=== PATIENT | female | born 1975 | race Caucasian/White ===

== ENCOUNTER 2017-01-18 15:07 | Inpatient (IN) | payer MEDICAID ==
[~2017-01-18] VITALS: Ht 165.1 cm; Wt 72.6 kg
[~2017-01-18 15:07] MED LIST: ASPI-518; ASPI-864 PO; FERR325T23 PO; GLYB5TAB7 PO; LEVO1TAB43; LISI-186 PO; LISI10TA5 PO; METF-517 PO; METF500T4 PO
[2017-01-18 16:13] LABS: INR 0.9; PARTIAL THROMBOPLASTIN TIME 21.2 sec (23.4-31.0); PROTHROMBIN TIME 9.9 sec (9.4-11.6)
[2017-01-18 16:15] LABS: CARBON DIOXIDE 23 mEq/L (21-32); CHLORIDE 104 mEq/L (98-107)
[2017-01-18 16:18] LABS: TROPONIN I < 0.02 ng/mL (0.00-0.04)
[2017-01-18 16:21] LABS: CREATINE KINASE 28 IU/L (26-192); CREATINE KINASE MB FRACTION < 0.5 ng/mL (0.5-3.6)
[2017-01-18 16:24] LABS: BASOPHILS % 0.8 % (0.0-2.0); EOSINOPHILS % 0.7 % (0.0-5.0); HEMOGLOBIN. 7.1 g/dL (12.0-16.0); MEAN CORPUSCULAR HEMOGLOBIN 17.2 pg (28.0-32.0); MEAN CORPUSCULAR VOLUME 58.4 fL (81.0-99.0); MEAN PLATELET VOLUME 10.5 fl (7.4-10.4); MONOCYTES % 5.3 % (2.0-8.0); NEUTROPHILS % 69.2 % (40.0-76.0); PLATELET 179 x1000/uL (130-400); RED CELL DISTRIBUTION WIDTH 20.8 % (11.6-14.6)
[2017-01-18 16:25] LABS: HCG SCREEN NEGATIVE; TOTAL IRON BINDING CAPACITY 512 ug/dL (250-450)
[2017-01-18 16:48] LABS: PLATELET ESTIMATE NORMAL
[2017-01-18 19:19] VITALS: BP 116/64
[2017-01-18 20:03] VITALS: BP 116/64
[2017-01-18 20:22] VITALS: BP 110/69
[2017-01-18] MEDS: BLOOD SUGAR DIAGNOSTIC STRIP TEST SCH (20:29)
[2017-01-18] MEDS ORDERED: DEXTROSE 50% WATER 50ML SYRINGE IV PRN (20:30)
[2017-01-18] MEDS: INSULIN LISPRO 100 UNITS/ML SUBCUT SCH (21:33)
[2017-01-18 21:36] VITALS: BP 110/77
[2017-01-19] VITALS: BP 107/71
[2017-01-19 04:00] VITALS: BP 111/66
[2017-01-19 06:35] LABS: BASOPHILS % 0.8 % (0.0-2.0); EOSINOPHILS % 1.5 % (0.0-5.0); HEMATOCRIT. 26.1 % (36.0-48.0); HEMOGLOBIN. 7.9 g/dL (12.0-16.0); LYMPHOCYTES % 24.7 % (20.0-50.0); MEAN CORPUSCULAR HEMOGLOBIN 18.9 pg (28.0-32.0); MEAN CORPUSCULAR VOLUME 62.5 fL (81.0-99.0); MONOCYTES % 7.6 % (2.0-8.0); NEUTROPHILS % 65.4 % (40.0-76.0); RED BLOOD CELL COUNT 4.17 mill/uL (4.2-5.4); RED CELL DISTRIBUTION WIDTH 26.2 % (11.6-14.6)
[2017-01-19] MEDS: BLOOD SUGAR DIAGNOSTIC STRIP TEST SCH (06:36)
[2017-01-19] MEDS: INSULIN LISPRO 100 UNITS/ML SUBCUT SCH (06:36)
[2017-01-19 07:00] LABS: CHLORIDE 105 mEq/L (98-107)
[2017-01-19 07:02] LABS: CARBON DIOXIDE 22 mEq/L (21-32); TOTAL IRON BINDING CAPACITY 496 ug/dL (250-450)
[2017-01-19] MEDS ORDERED: METFORMIN HCL 500MG TABLET PO SCH (07:40)
[2017-01-19 08:00] VITALS: BP 114/70
[2017-01-19] MEDS ORDERED: ASPIRIN 81MG EC TABLET PO SCH (09:00)
[2017-01-19] MEDS ORDERED: FERR325T23 PO (10:54)
[2017-01-19 11:40] VITALS: BP 124/76
[2017-01-20 12:41] LABS: MEAN PLATELET VOLUME 9.7 fl (7.4-10.4); PLATELET 123 x1000/uL (130-400)
== END 2017-01-19 12:48 | disposition home or self-care (01) | DRG 532 ==
LOC: ER 16:15 → EDBEDREQ 16:42 → ENRESERV 16:59 → 8WST 18:54
PROVIDERS: ADMIT Internal Medicine; ATTEND Internal Medicine
PROC: 30233N1 Transfusion of Nonautologous Red Blood Cells into Peripheral Vein, Percutaneous Approach (ICD-10-PCS; principal; 2017-01-18)
DX: D25.9 Leiomyoma of uterus, unspecified (principal); D62 Acute posthemorrhagic anemia; I10 Essential (primary) hypertension; E11.9 Type 2 diabetes mellitus without complications; N92.0 Excessive and frequent menstruation with regular cycle; Z88.0 Allergy status to penicillin; Z79.82 Long term (current) use of aspirin; Z79.818 Long term (current) use of other agents affecting estrogen receptors and estrogen levels; Z79.84 Long term (current) use of oral hypoglycemic drugs; Z79.899 Other long term (current) drug therapy
CPT/HCPCS: 36415; 36430; 71010; 76830; 76856; 80048; 80053; 81025; 82550; 82553; 82728; 82962; 83540; 83550; 83690; 83880; 84443; 84484; 84703; 85025; 85044; 85610; 85730; 86850; 86900; 86920; 93005; 99291; J1815; J7030; P9016

== ENCOUNTER 2019-09-09 09:35 | Inpatient (IN) | payer MEDICAID, OTHER ==
[~2019-09-09] VITALS: Ht 165.1 cm; Wt 73.1 kg
[~2019-09-09 09:35] MED LIST changes: -ASPI-518; -LISI-186 PO; -METF500T4 PO
[2019-09-09] MEDS: INSULIN LISPRO 100 UNITS/ML SUBCUT SCH ×2 (09:45→20:36)
[2019-09-09] MEDS ORDERED: LIDOCAINE HCL/PF 1% 2ML VIAL ONE (09:47)
[2019-09-09 10:58] LABS: BASOPHILS % 0.2 % (0.0-2.0); EOSINOPHILS % 0.1 % (0.0-5.0); HEMATOCRIT. 43.6 % (36.0-48.0); MEAN CORPUSCULAR HEMOGLOBIN 29.8 pg (28.0-32.0); MEAN CORPUSCULAR VOLUME 86.5 fL (81.0-99.0); MEAN PLATELET VOLUME 10.2 fl (7.4-10.4); MONOCYTES % 6.1 % (2.0-8.0); NEUTROPHILS % 83.6 % (40.0-76.0); PLATELET 166 x1000/uL (130-400); RED BLOOD CELL COUNT 5.04 mill/uL (4.2-5.4); RED CELL DISTRIBUTION WIDTH 12.9 % (11.6-14.6)
[2019-09-09 11:01] LABS: CLARITY URINE CLEAR (CLEAR); COLOR URINE YELLOW (YELLOW); KETONES URINE 4+ (NEGATIVE); LEUKOCYTE ESTERASE URINE 1+ (NEGATIVE); NITRITE URINE NEGATIVE (NEGATIVE); OCCULT BLOOD URINE NEGATIVE (NEGATIVE); PH URINE 5.5 (4.5-8.0); PROTEIN URINE 2+ (NEGATIVE); SPECIFIC GRAVITY URINE 1.036 (1.005-1.030); UROBILINOGEN URINE 0.2 E.U./dL (0.2-1.0)
[2019-09-09 11:07] LABS: CHLORIDE 105 mEq/L (98-107)
[2019-09-09] MEDS ORDERED: SODIUM CHLORIDE 0.9% 1,000 ML IV ONE ×2 (11:26→13:20)
[2019-09-09 11:41] LABS: HCG SCREEN NEGATIVE
[2019-09-09 11:46] LABS: BG DEOXYHEMOGLOBIN 6.9 % (0.0-5.0); BG HCO3 ACT 12.3 mmol/L (22.0-26.0); BG METHEMOGLOBIN 0.2 % (0.0-1.5); BG OXYGEN SATURATION 93.1 % (92.0-98.5); BG OXYHEMOGLOBIN 92.9 % (94.0-97.0); BG PCO2 20.5 mmHg (35.0-45.0); BG PH 7.397 (7.350-7.450); BG PO2 65.7 mmHg (75.0-100.0); BG SAMPLE SITE RIGHT RADIAL; BG TOTAL HEMOGLOBIN 14.8 g/dL (12.0-18.0); BG VENT MODE ROOM AIR
[2019-09-09] MEDS ORDERED: INSULIN REGULAR (HUMULIN R) 300UNITS/3ML IV ONE (12:00)
[2019-09-09] MEDS ORDERED: POTASSIUM CHLORIDE 20MEQ TABLET SR PO ONE (12:30)
[2019-09-09] MEDS ORDERED: SODIUM CHLORIDE 0.9% 1,000 ML IV SCH (12:35)
[2019-09-09] MEDS ORDERED: ACETAMINOPHEN 325MG TABLET PO PRN (12:45)
[2019-09-09] MEDS ORDERED: DEXTROSE 50% WATER 50ML SYRINGE IV PRN (12:45)
[2019-09-09] MEDS ORDERED: ONDANSETRON HCL 4MG/2ML INJ IV PRN (12:45)
[2019-09-09 13:07] LABS: CREATINE KINASE 26 IU/L (26-192)
[2019-09-09 13:08] LABS: CREATINE KINASE MB FRACTION < 1.0 ng/mL (0.5-3.6)
[2019-09-09] MEDS: BLOOD SUGAR DIAGNOSTIC STRIP TEST SCH (15:00)
[2019-09-09] MEDS ORDERED: LEVOFLOXACIN 500MG PREMIX 100 ML IV NR (15:00)
[2019-09-09] MEDS ORDERED: FERROUS SULFATE 325MG TABLET PO SCH (15:00)
[2019-09-09 16:54] LABS: CHLORIDE 111 mEq/L (98-107)
[2019-09-09] MEDS ORDERED: POTASSIUM CHLORIDE 20MEQ/PACKET PO NR (17:00)
[2019-09-09] MEDS ORDERED: FERROUS SULFATE 325MG TABLET PO NR (20:15)
[2019-09-09] MEDS ORDERED: INSULIN GLARGINE UD 100 UNITS/ML SYR SUBCUT NR (22:15)
[2019-09-10 08:54] LABS: BASOPHILS % 0.5 % (0.0-2.0); EOSINOPHILS % 0.7 % (0.0-5.0); HEMATOCRIT. 39.2 % (36.0-48.0); HEMOGLOBIN. 13.6 g/dL (12.0-16.0); LYMPHOCYTES % 24.2 % (20.0-50.0); MEAN CORPUSCULAR VOLUME 86.7 fL (81.0-99.0); MEAN PLATELET VOLUME 9.7 fl (7.4-10.4); MONOCYTES % 12.4 % (2.0-8.0); NEUTROPHILS % 62.2 % (40.0-76.0); PLATELET 165 x1000/uL (130-400); RED BLOOD CELL COUNT 4.52 mill/uL (4.2-5.4); RED CELL DISTRIBUTION WIDTH 12.6 % (11.6-14.6)
[2019-09-10 09:01] LABS: CHLORIDE 111 mEq/L (98-107)
[2019-09-10] MEDS: ASPIRIN 81MG EC TABLET PO SCH (11:29)
[2019-09-10] MEDS ORDERED: INSULIN GLARGINE UD 100 UNITS/ML SYR SUBCUT SCH (12:00)
[2019-09-10 14:55] VITALS: BP 140/80
[2019-09-10 16:00] VITALS: BP 139/76
[2019-09-10] MEDS ORDERED: LEVOFLOXACIN 500MG PREMIX 100 ML IV SCH ×2 (16:00)
[2019-09-10] MEDS: BLOOD SUGAR DIAGNOSTIC STRIP TEST SCH ×2 (16:41→21:00)
[2019-09-10] MEDS: INSULIN LISPRO 100 UNITS/ML SUBCUT SCH ×2 (16:49→22:51)
[2019-09-10 20:00] VITALS: BP 139/84
[2019-09-10] MEDS: HEPARIN 5000 UNITS/ML VIAL SUBCUT SCH (22:49)
[2019-09-11] VITALS (8 sets, daily range): BP systolic 122–171; BP diastolic 70–93
[2019-09-11] MEDS: BLOOD SUGAR DIAGNOSTIC STRIP TEST SCH ×4 (06:09→21:27)
[2019-09-11] MEDS: INSULIN LISPRO 100 UNITS/ML SUBCUT SCH ×4 (06:42→21:28)
[2019-09-11 06:47] LABS: BASOPHILS % 0.2 % (0.0-2.0); HEMOGLOBIN. 13.4 g/dL (12.0-16.0); LYMPHOCYTES % 26.5 % (20.0-50.0); MEAN CORPUSCULAR HEMOGLOBIN 30.1 pg (28.0-32.0); MEAN CORPUSCULAR VOLUME 85.1 fL (81.0-99.0); MEAN PLATELET VOLUME 9.5 fl (7.4-10.4); MONOCYTES % 11.2 % (2.0-8.0); NEUTROPHILS % 61.1 % (40.0-76.0); PLATELET 193 x1000/uL (130-400); RED BLOOD CELL COUNT 4.47 mill/uL (4.2-5.4); RED CELL DISTRIBUTION WIDTH 12.7 % (11.6-14.6)
[2019-09-11 07:23] LABS: CHLORIDE 109 mEq/L (98-107)
[2019-09-11] MEDS: ASPIRIN 81MG EC TABLET PO SCH (08:40)
[2019-09-11] MEDS: FERROUS SULFATE 325MG TABLET PO SCH ×3 (08:40→18:14)
[2019-09-11] MEDS: HEPARIN 5000 UNITS/ML VIAL SUBCUT SCH ×2 (08:41→21:26)
[2019-09-11] MEDS: INSULIN GLARGINE UD 100 UNITS/ML SYR SUBCUT SCH (10:00)
[2019-09-11] MEDS ORDERED: POTASSIUM CHLORIDE 20MEQ/PACKET PO SCH (11:30)
[2019-09-11] MEDS ORDERED: INSULIN GLARGINE UD 100 UNITS/ML SYR SUBCUT SCH (14:00)
[2019-09-11] MEDS ORDERED: LEVOFLOXACIN 500MG PREMIX 100 ML IV SCH (21:00)
[2019-09-12 04:00] VITALS: BP 123/80
[2019-09-12] MEDS: BLOOD SUGAR DIAGNOSTIC STRIP TEST SCH ×4 (05:57→20:46)
[2019-09-12 06:13] LABS: BASOPHILS % 0.2 % (0.0-2.0); HEMATOCRIT. 40.3 % (36.0-48.0); LYMPHOCYTES % 25.5 % (20.0-50.0); MEAN CORPUSCULAR HEMOGLOBIN 29.6 pg (28.0-32.0); MEAN CORPUSCULAR VOLUME 84.9 fL (81.0-99.0); MEAN PLATELET VOLUME 10.3 fl (7.4-10.4); MONOCYTES % 8.8 % (2.0-8.0); NEUTROPHILS % 64.5 % (40.0-76.0); PLATELET 244 x1000/uL (130-400); RED BLOOD CELL COUNT 4.75 mill/uL (4.2-5.4); RED CELL DISTRIBUTION WIDTH 12.7 % (11.6-14.6)
[2019-09-12] MEDS: INSULIN LISPRO 100 UNITS/ML SUBCUT SCH ×4 (06:27→20:47)
[2019-09-12 07:22] LABS: CHLORIDE 110 mEq/L (98-107)
[2019-09-12 08:00] VITALS: BP 124/80
[2019-09-12] MEDS: FERROUS SULFATE 325MG TABLET PO SCH ×3 (08:00→17:38)
[2019-09-12] MEDS: HEPARIN 5000 UNITS/ML VIAL SUBCUT SCH ×2 (08:00→20:46)
[2019-09-12] MEDS: ASPIRIN 81MG EC TABLET PO SCH (08:00)
[2019-09-12] MEDS: INSULIN GLARGINE UD 100 UNITS/ML SYR SUBCUT SCH (10:22)
[2019-09-12 12:00] VITALS: BP 117/72
[2019-09-12] MEDS ORDERED: AZIT500T8 MT (12:08)
[2019-09-12] MEDS ORDERED: INSULIN GLARGINE UD 100 UNITS/ML SYR SUBCUT SCH (13:00)
[2019-09-12 16:00] VITALS: BP 124/80
[2019-09-12 20:00] VITALS: BP 121/78
[2019-09-12] MEDS: LEVOFLOXACIN 500MG TABLET PO SCH (20:46)
[2019-09-13] VITALS: BP 115/69
[2019-09-13 04:00] VITALS: BP 121/78
[2019-09-13] MEDS: BLOOD SUGAR DIAGNOSTIC STRIP TEST SCH ×4 (06:13→20:35)
[2019-09-13] MEDS: INSULIN LISPRO 100 UNITS/ML SUBCUT SCH ×4 (06:19→21:35)
[2019-09-13 07:51] LABS: BASOPHILS % 0.4 % (0.0-2.0); EOSINOPHILS % 1.2 % (0.0-5.0); HEMATOCRIT. 39.2 % (36.0-48.0); HEMOGLOBIN. 13.7 g/dL (12.0-16.0); LYMPHOCYTES % 24.7 % (20.0-50.0); MEAN CORPUSCULAR HEMOGLOBIN 29.9 pg (28.0-32.0); MEAN CORPUSCULAR VOLUME 85.8 fL (81.0-99.0); MEAN PLATELET VOLUME 9.7 fl (7.4-10.4); MONOCYTES % 10.2 % (2.0-8.0); NEUTROPHILS % 63.5 % (40.0-76.0); PLATELET 262 x1000/uL (130-400); RED BLOOD CELL COUNT 4.57 mill/uL (4.2-5.4); RED CELL DISTRIBUTION WIDTH 12.7 % (11.6-14.6)
[2019-09-13 07:55] LABS: CHLORIDE 108 mEq/L (98-107)
[2019-09-13 08:00] VITALS: BP 118/70
[2019-09-13] MEDS: ASPIRIN 81MG EC TABLET PO SCH (08:42)
[2019-09-13] MEDS: FERROUS SULFATE 325MG TABLET PO SCH ×3 (08:42→17:20)
[2019-09-13] MEDS: HEPARIN 5000 UNITS/ML VIAL SUBCUT SCH ×2 (08:43→21:33)
[2019-09-13] MEDS ORDERED: INSULIN GLARGINE UD 100 UNITS/ML SYR SUBCUT SCH (10:00)
[2019-09-13 11:41] VITALS: BP 96/57
[2019-09-13] MEDS: THIAMINE HCL 100MG TABLET PO SCH (13:37)
[2019-09-13] MEDS: ZINC SULFATE 220 MG ( 50 ) CAPSULE PO SCH (13:37)
[2019-09-13 16:00] VITALS: BP 110/71
[2019-09-13 20:00] VITALS: BP 106/68
[2019-09-13] MEDS: ASCORBIC ACID 500 MG TABLET PO SCH (21:34)
[2019-09-13] MEDS: LEVOFLOXACIN 500MG TABLET PO SCH (21:34)
[2019-09-13] MEDS: INSULIN GLARGINE UD 100 UNITS/ML SYR SUBCUT SCH (21:35)
[2019-09-14] VITALS (7 sets, daily range): BP systolic 90–112; BP diastolic 50–74
[2019-09-14] MEDS: BLOOD SUGAR DIAGNOSTIC STRIP TEST SCH ×4 (05:42→21:00)
[2019-09-14] MEDS: FERROUS SULFATE 325MG TABLET PO SCH ×3 (06:16→17:58)
[2019-09-14] MEDS: INSULIN LISPRO 100 UNITS/ML SUBCUT SCH ×3 (06:21→18:35)
[2019-09-14 07:17] LABS: BASOPHILS % 0.5 % (0.0-2.0); EOSINOPHILS % 1.5 % (0.0-5.0); HEMATOCRIT. 37.8 % (36.0-48.0); HEMOGLOBIN. 13.3 g/dL (12.0-16.0); LYMPHOCYTES % 28.8 % (20.0-50.0); MEAN CORPUSCULAR HEMOGLOBIN 30.1 pg (28.0-32.0); MEAN CORPUSCULAR VOLUME 85.6 fL (81.0-99.0); MEAN PLATELET VOLUME 9.6 fl (7.4-10.4); MONOCYTES % 10.9 % (2.0-8.0); NEUTROPHILS % 58.3 % (40.0-76.0); PLATELET 280 x1000/uL (130-400); RED BLOOD CELL COUNT 4.42 mill/uL (4.2-5.4); RED CELL DISTRIBUTION WIDTH 12.4 % (11.6-14.6)
[2019-09-14 08:07] LABS: CHLORIDE 110 mEq/L (98-107)
[2019-09-14] MEDS: HEPARIN 5000 UNITS/ML VIAL SUBCUT SCH ×2 (09:41→22:29)
[2019-09-14] MEDS: ZINC SULFATE 220 MG ( 50 ) CAPSULE PO SCH (09:41)
[2019-09-14] MEDS: THIAMINE HCL 100MG TABLET PO SCH (09:41)
[2019-09-14] MEDS: ASPIRIN 81MG EC TABLET PO SCH (09:41)
[2019-09-14] MEDS: ASCORBIC ACID 500 MG TABLET PO SCH ×2 (09:41→22:28)
[2019-09-14] MEDS: INSULIN GLARGINE UD 100 UNITS/ML SYR SUBCUT SCH ×2 (10:39→22:30)
[2019-09-14] MEDS: METFORMIN HCL 500MG TABLET PO SCH (17:59)
[2019-09-14] MEDS: LEVOFLOXACIN 500MG TABLET PO SCH (22:27)
[2019-09-15] VITALS: BP 107/69
[2019-09-15] MEDS: INSULIN LISPRO 100 UNITS/ML SUBCUT SCH ×2 (00:13→06:32)
[2019-09-15 04:00] VITALS: BP 103/68
[2019-09-15] MEDS: FERROUS SULFATE 325MG TABLET PO SCH (06:32)
[2019-09-15] MEDS: BLOOD SUGAR DIAGNOSTIC STRIP TEST SCH ×2 (06:32→11:40)
[2019-09-15] MEDS: THIAMINE HCL 100MG TABLET PO SCH (08:39)
[2019-09-15] MEDS: ZINC SULFATE 220 MG ( 50 ) CAPSULE PO SCH (08:39)
[2019-09-15] MEDS: ASPIRIN 81MG EC TABLET PO SCH (08:39)
[2019-09-15] MEDS: ASCORBIC ACID 500 MG TABLET PO SCH (08:39)
[2019-09-15] MEDS: HEPARIN 5000 UNITS/ML VIAL SUBCUT SCH (08:40)
[2019-09-15] MEDS: METFORMIN HCL 500MG TABLET PO SCH (08:40)
[2019-09-15 08:42] VITALS: BP 110/68
[2019-09-15 13:07] VITALS: BP 125/70
[2019-09-15] MEDS: INSULIN GLARGINE UD 100 UNITS/ML SYR SUBCUT SCH (14:47)
== END 2019-09-15 15:02 | disposition home or self-care (01) | DRG 720 ==
LOC: ER 09:35 → EDBEDREQSVC 12:26 → EDBEDREQTM 12:26 → EDBEDREQ 12:26 → EDBEDREQSVC 09-10 10:09 → ENRESERV 09-10 12:21 → 5WST 09-10 12:22 → 7EST 09-11 00:12
PROVIDERS: ADMIT Internal Medicine; ATTEND Internal Medicine
DX: A41.89 Other specified sepsis (principal); U07.1 COVID-19; J96.01 Acute respiratory failure with hypoxia; E11.10 Type 2 diabetes mellitus with ketoacidosis without coma; I10 Essential (primary) hypertension; D64.9 Anemia, unspecified; Z79.84 Long term (current) use of oral hypoglycemic drugs; Z98.891 History of uterine scar from previous surgery; Z79.4 Long term (current) use of insulin; Z79.82 Long term (current) use of aspirin; Z79.899 Other long term (current) drug therapy; Z91.14 Patient's other noncompliance with medication regimen; Z88.0 Allergy status to penicillin; J12.89 Other viral pneumonia
CPT/HCPCS: 36415; 36600; 71045; 80048; 80053; 81003; 82010; 82375; 82550; 82553; 82805; 82962; 83036; 83735; 84484; 84703; 85025; 86850; 86900; 87635; 93005; 99291; J1644; J1815; J1956; J3490; J7030

== ENCOUNTER 2024-01-17 19:11 | Emergency (ER) | payer MEDICAID, OTHER ==
[~2024-01-17] VITALS: Ht 165.1 cm; Wt 76.0 kg
[~2024-01-17 19:11] MED LIST changes: +AZIT500T8 MT; -LEVO1TAB43; +LISI10TA26 PO; -LISI10TA5 PO; -METF-517 PO; +METF-817 PO
[2024-01-17 19:19] VITALS: O2SAT 100
[2024-01-17] MEDS ORDERED: NAPR-1176 MT (20:14)
[2024-01-17] MEDS: IBUPROFEN 600MG TABLET PO ONE (20:49)
[2024-01-17 20:57] VITALS: BP 143/77; PULSE 83; RESP 14; TEMP 36.66960; O2SAT 100
== END 2024-01-17 20:57 | disposition home or self-care (01) ==
LOC: ER 19:11
DX: M79.645 Pain in left finger(s) (principal); D64.9 Anemia, unspecified; E11.9 Type 2 diabetes mellitus without complications; I10 Essential (primary) hypertension; Z90.710 Acquired absence of both cervix and uterus; Z98.890 Other specified postprocedural states; Z88.0 Allergy status to penicillin; Z79.899 Other long term (current) drug therapy
CPT/HCPCS: 73130; 99283